=== PATIENT | male | born 1995 | race African-American/Black ===

== ENCOUNTER 2023-03-10 13:32 | Inpatient (IN) ==
[2023-03-10] MEDS ORDERED: SODIUM CHLORIDE 0.9% 1,000 ML IV ONE (13:54)
--- NOTE | 2023-03-10 14:17 | Emergency Department Note ---
Impression & Plan Fever, Travel within last 14 days ED Provider Note NAME: DINO HENLEY AGE: 27 SEX: M : 1995 ARRIVES VIA: Walk-In INFORMANT: Patient, ED PROVIDER(S): Mehul Chaparro DO CHIEF COMPLAINT: Fever HPI: The patient is a 27-year-old male who presented to the emergency department for fever. The patient was sent to the emergency department from [facility]. He recently returned from [place] over the weekend. He was there for a month. He has no symptoms. He denies having any cough or diarrhea. He denies having any chest pain or difficulty breathing. He denies having any dysuria or frequency. He was tested for the usual panel at [facility] but when this was negative he was sent to the emergency department for further evaluation ROS: See above HPI for pertinent positives & negatives. A total of 10 systems reviewed and were otherwise negative. PAST MEDICAL HISTORY: See Below PAST SURGICAL HISTORY: See Below FAMILY HISTORY: See Below SOCIAL HISTORY: See Below HOME MEDICATIONS: See Below ALLERGIES: See Below VITALS: See Below PHYSICAL EXAMINATION: GENERAL: Patient is awake alert in no acute distress patient is resting comfortably and showing no signs of anxiety EYES: The conjunctivae are clear. The pupils are round and reactive. EARS, NOSE, MOUTH AND THROAT: The nose is without any evidence of any deformity. NECK: The neck is nontender and supple. RESPIRATORY: Normal respiratory effort is noted there is no evidence of wheezing rhonchi or rales CARDIOVASCULAR: Regular rate and rhythm noted there no murmurs rubs or gallops normal S1 normal S2. GASTROINTESTINAL: The abdomen is soft. Abdomen is nontender. MUSCULOSKELETAL/EXTREMITIES: There is no evidence of gross deformity full range of motion is noted in the hips and shoulders. SKIN: There is no obvious evidence of any rash. There are no petechiae, pallor or cyanosis noted. NEUROLOGIC: Patient is awake alert and oriented x3 strength is symmetric patellar reflexes are 2+ bilaterally MEDICAL DECISION MAKING: The patient is a 27-year-old male who presented to the emergency department for fever. The patient was seen at [facility] and because of his recent travel history he was sent to the emergency department for further evaluation. I discussed patient's laboratory and radiographic studies with him. He was treated with IV fluids in the emergency department. The patient has high risk for malaria or other travel related illness. For this reason I discussed his condition with the on-call [facility] hospitalist. The patient may require serial malaria smears and I do not feel he would be able to arrange this as an outpatient. The patient was agreeable to plan. Triage Nursing notes reviewed. Prior medical records reviewed Vital Signs: reviewed and remarkable for fever. Differential diagnosis: Viral syndrome, otitis, pharyngitis, pneumonia, influenza, meningitis, urinary tract infection, sepsis, bacteremia, as well as other pathologies. ER treatment provided: See below Diagnostics interpreted by me: ECG: none Cardiac Monitoring: An order was placed for continuous cardiac monitoring. The monitor shows a rate of 64 bpm with sinus rhythm. Laboratory studies: As stated above and show below. Imaging studies: See below. Radiographic imaging was reviewed by myself Consultation(s): I discussed this case with Dr Ott who is on-call for the [facility] group. Past Med/Surg History Social History Smoking Status: Never smoker Feels Safe at Home: Yes Allergies Allergies Allergy/AdvReac Type Severity Reaction Status Date / Time No Known Allergies Allergy Verified 03/10/23 17:46 Home Meds Home Medications Medication Instructions Recorded Confirmed No Known Home Medications 03/10/23 03/10/23 Results & Data (ED) Vital Signs Vital Signs - 24 hr 03/10/23 13:39 03/10/23 15:09 03/10/23 15:09 Temperature 39.2 C H Temperature Source Oral Pulse Rate 97 H Pulse Rate [Apical] 86 Respiratory Rate 18 14 Blood Pressure 119/65 Blood Pressure [Right Arm] 116/67 Blood Pressure Mean 83 Blood Pressure Mean [Right Arm] 83 Pulse Oximetry 95 97 Oxygen Delivery Method Room Air Room Air Room Air Sepsis Recent Fever Within 48 Hours Yes Sepsis New/Unexplained Change in Mental Status No Sepsis Action Taken by Nursing No Action Required 03/10/23 16:02 03/10/23 17:00 Temperature Temperature Source Pulse Rate 86 Pulse Rate [Apical] 65 Respiratory Rate 18 Blood Pressure Blood Pressure [Right Arm] 110/71 Blood Pressure Mean Blood Pressure Mean [Right Arm] 84 Pulse Oximetry 98 Oxygen Delivery Method Sepsis Recent Fever Within 48 Hours Sepsis New/Unexplained Change in Mental Status Sepsis Action Taken by [facility] Medications Current Medication List: was personally reviewed by me Laboratory Data Attestation: I reviewed the patient's lab results. 03/10/23 14:58 03/10/23 14:58 Lab Results 03/10/23 03/10/23 Range/Units 14:58 15:30 WBC 3.15 L (4.8-10.8) K/ul RBC 4.60 L (4.70-6.10) M/uL Hgb 13.9 L (14.0-18.0) g/dl Hct 40.7 L (42.0-52.0) % MCV 88.5 (80.0-100.0) fL MCH 30.2 (25.0-34.0) pg MCHC 34.2 (32.0-36.0) g/dL RDW Std Deviation 38.7 (36.4-46.3) fL RDW Coeff of Tab 12.0 (11.5-14.5) % Plt Count 150 (130-400) K/uL MPV 10.4 (9.4-12.4) fL Immature Gran % (Auto) 0.3 % Neut % (Auto) 68.9 % Lymph % (Auto) 18.7 % [place] % (Auto) 10.8 % Eos % (Auto) 1.0 % Baso % (Auto) 0.3 % Neut # (Auto) 2.17 (1.40-6.50) K/uL Lymph # (Auto) 0.59 L (1.20-3.40) K/uL [place] # (Auto) 0.34 (0.11-0.59) K/uL Eos # (Auto) 0.03 (0.00-0.50) K/uL Baso # (Auto) 0.01 (0.00-0.20) K/uL Immature Gran # (Auto) 0.01 (0.01-0.20) K/uL PT 11.9 (9.0-12.0) Seconds INR 1.1 (0.9-1.1) APTT 33 H (21-31) Seconds PTT Ratio 1.2 VBG pH 7.43 H (7.36-7.41) VBG pCO2 41 (38-50) mmHg VBG pO2 64 mmHg VBG HCO3 27 mmol/L VBG O2 Saturation 93.1 % VBG Base Excess 2.6 mEq/L Sodium 134 L (136-145) mmol/L Potassium 3.2 L (3.5-5.1) mmol/L Chloride 100 (98-107) mmol/L Carbon Dioxide 28 (21-32) mmol/L Anion Gap 6 (3-11) BUN 7 (6-23) mg/dl Creatinine 1.16 (0.6-1.4) mg/dl Est Cr Clr Drug Dosing 89.4 ml/min Est GFR ( Amer) 98.1 ml/min Est GFR (Non-Af Amer) 84.6 ml/min BUN/Creatinine Ratio 6.0 L (10-20) Glucose 115 H (70-99(Fasting)) mg/dl Lactate 0.9 (0.4-2.0) mmol/L Calcium 8.8 (8.6-10.3) mg/dl Magnesium 1.7 (1.7-2.4) mg/dl Total Bilirubin 0.5 (0.2-1.0) mg/dl Direct Bilirubin 0.1 (0-0.2) mg/dl AST 40 H (13-39) U/L ALT 23 (7-52) U/L Alkaline Phosphatase 43 (34-104) U/L Troponin I High Sens 13.6 (0-20) pg/ml Total Protein 7.0 (6.0-8.3) gm/dl Albumin 4.1 (3.4-5.0) gm/dl Procalcitonin 1.07 H (0-0.5) ng/ml Urine Color Yellow Urine Appearance Clear (Clear) Urine pH 7.0 (4.5-7.5) Ur Specific [place] 1.002 (1.000-1.030) Urine Protein Negative (Negative) Urine Glucose (UA) Negative (Negative) Urine Ketones Negative (Negative) Urine Blood Negative (Negative) Urine Nitrite Negative (Negative) Urine Bilirubin Negative (Negative) Urine Urobilinogen Negative (Negative) Ur Leukocyte Esterase Negative (Negative) Adenovirus (PCR) Not Detected (NotDetected) B. pertussis DNA (PCR) Not Detected (NotDetected) B.parapertussis DNA PCR Not Detected (NotDetected) C. pneumoniae DNA (PCR) Not Detected (NotDetected) Coronavirus OC43 (PCR) Not Detected (NotDetected) Coronavirus HKU1 (PCR) Not Detected (NotDetected) Coronavirus 229E (PCR) Not Detected (NotDetected) SARS-CoV-2 (PCR) Not Detected (NotDetected) Coronavirus NL63 (PCR) Not Detected (NotDetected) Human Metapneumovir PCR Not Detected (NotDetected) Influenza Type A (PCR) Not Detected (NotDetected) Influenza Type B (PCR) Not Detected (NotDetected) M. pneumoniae (PCR) Not Detected (NotDetected) Parainfluenza 1 (PCR) Not Detected (NotDetected) Parainfluenza 2 (PCR) Not Detected (NotDetected) Parainfluenza 3 (PCR) Not Detected (NotDetected) Parainfluenza 4 (PCR) Not Detected (NotDetected) RSV (PCR) Not Detected (NotDetected) Entero/Rhino (PCR) Not Detected (NotDetected) Administered Medications Acetaminophen (Acetaminophen 325 Mg Tab) 650 mg PO Q6H PRN PRN Reason: pain/fever Stop: 04/09/23 18:21 Last Admin: 03/10/23 18:29 Dose: 650 mg Documented By: TERRY Acyclovir (Acyclovir 400 Mg Tab) 400 mg PO TID SCOTTY Stop: 03/17/23 20:59 Last Admin: 03/10/23 21:03 Dose: 400 mg Documented By: SASHA Lactated Ringer's (Lr) 1,000 mls @ 100 mls/hr IV .Q10H SCOTTY Stop: 03/11/23 15:29 Last Admin: 03/10/23 20:52 Dose: 100 mls/hr Documented By: SASHA Discontinued Medications Acetaminophen (Acetaminophen 325 Mg Tab) Confirm Administered Dose 650 mg .ROUTE .STK-MED ONE Stop: 03/10/23 18:28 Last Admin: 03/10/23 18:30 Dose: Not Given Documented By: TERRY Sodium Chloride (Nss) 1,000 mls @ 999 mls/hr IV .Q1H1M ONE Stop: 03/10/23 14:54 Last Infusion: 03/10/23 17:02 Dose: Infused Documented By: Admin: 03/10/23 15:05 Dose: 999 mls/hr Documented By: BITA Potassium Chloride (Potassium Chloride Crtab 20 Meq Tabcr) 40 meq PO NOW STA Stop: 03/10/23 18:13 Last Admin: 03/10/23 18:29 Dose: 40 meq Documented By: TERRY Imaging Data Attestation: I personally reviewed and interpreted this imaging study as follows: My Impression: 1 view chest x-ray was obtained in the emergency department. My interpretation is no free air or definite infiltrate, final report below. Radiologist's Impression: Chest X-Ray 03/10/23 13:54 XR chest 1V portable CLINICAL HISTORY: Sepsis. COMPARISON STUDY: No previous studies for comparison. FINDINGS: Lung volumes are normal. Lungs are clear. There is no pneumothorax or pleural effusion. Cardiac size is normal. Mediastinal contours are normal. There is no evidence for pulmonary edema. IMPRESSION: No acute cardiopulmonary findings. ACT 112: Negative or not required by law. Electronically signed by: Tony Toney M.D. 03/10/2023 2:30 PM Discharge Plan Visit Data Chief Complaint: Referred by Doctor Stated Complaint: FEVER, TRAVEL FROM [place], REF BY DOC ED Provider: Mehul Chaparro Discharge Problem: Fever, Travel within last 14 days Patient Disposition: Admitted As Inpatient Discharge Instructions Interventions: ED Discharge Assessment Last Done: 03/10/23 20:26 Discharge Problem: Fever Qualifiers: Fever type: unspecified Qualified Code(s): R50.9 - Fever, unspecified
--- NOTE | 2023-03-10 14:31 | XRay Report ---
XR chest 1V portable CLINICAL HISTORY: Sepsis. COMPARISON STUDY: No previous studies for comparison. FINDINGS: Lung volumes are normal. Lungs are clear. There is no pneumothorax or pleural effusion. Car diac size is normal. Mediastinal contours are normal. There is no evidence for pulmonary edema. IMPRESSION: No acute cardiopulmonary findings. ACT 112: Negative or not required by law. Electronically signed by: Tony Toney M.D. 03/10/2023 2:30 PM
[2023-03-10 15:17] LABS: Appearance Urine Clear (Clear); Bilirubin Urine Negative (Negative); Blood Urine Negative (Negative); Color Urine Yellow; Glucose Urine UA Negative (Negative); Ketones Urine Negative (Negative); Leukocyte Esterase Urine Negative (Negative); Nitrite Urine Negative (Negative); Protein Urine Negative (Negative); Specific Gravity Urine 1.002 (1.000-1.030); Urobilinogen Urine Negative (Negative)
[2023-03-10 15:21] LABS: Hematocrit (blood only) 40.7 % (42.0-52.0); Hemoglobin 13.9 g/dl (14.0-18.0); Mean Corpuscular Hemoglobin 30.2 pg (25.0-34.0); Mean Corpuscular Hgb Conc 34.2 g/dL (32.0-36.0); Mean Corpuscular Volume 88.5 fL (80.0-100.0); Mean Platelet Volume 10.4 fL (9.4-12.4); Platelet Count 150 K/uL (130-400); RDW Standard Deviation 38.7 fL (36.4-46.3); White Blood Count 3.15 K/ul (4.8-10.8)
[2023-03-10 15:36] LABS: INR 1.1 (0.9-1.1); Partial Thromboplastin Ratio 1.2; Partial Thromboplastin Time 33 Seconds (21-31); Prothrombin Time 11.9 Seconds (9.0-12.0)
[2023-03-10 15:41] LABS: Base Excess VBG 2.6 mEq/L; HCO3 VBG 27 mmol/L; Oxygen Saturation VBG 93.1 %; PCO2 VBG 41 mmHg (38-50); PO2 VBG 64 mmHg; pH VBG 7.43 (7.36-7.41)
[2023-03-10 15:46] LABS: Basophils # (auto) 0.01 K/uL (0.00-0.20); Basophils % (auto) 0.3 %; Eosinophils # (auto) 0.03 K/uL (0.00-0.50); Immature Granulocytes # (auto) 0.01 K/uL (0.01-0.20); Immature Granulocytes % (auto) 0.3 %; Lymphocytes # (auto) 0.59 K/uL (1.20-3.40); Lymphocytes % (auto) 18.7 %; Monocytes # (auto) 0.34 K/uL (0.11-0.59); Monocytes % (auto) 10.8 %; Neutrophils # (auto) 2.17 K/uL (1.40-6.50); Neutrophils % (auto) 68.9 %
[2023-03-10 15:49] LABS: Albumin Level 4.1 gm/dl (3.4-5.0); Bilirubin Direct 0.1 mg/dl (0-0.2); Bilirubin,Total 0.5 mg/dl (0.2-1.0); Calcium 8.8 mg/dl (8.6-10.3); Magnesium 1.7 mg/dl (1.7-2.4); Potassium 3.2 mmol/L (3.5-5.1)
[2023-03-10 15:55] LABS: Creatinine Clr Calc Pharmacy 89.4 ml/min; Est GFR (African American) 98.1 ml/min; Est GFR (Non-African American) 84.6 ml/min
[2023-03-10 15:59] LABS: Troponin I High Sensitivity 13.6 pg/ml (0-20)
[2023-03-10 16:00] LABS: Adenovirus PCR Not Detected (NotDetected); Bordetella parapertussis PCR Not Detected (NotDetected); Bordetella pertussis PCR Not Detected (NotDetected); Chlamydia pneumoniae PCR Not Detected (NotDetected); Coronavirus 229E PCR Not Detected (NotDetected); Coronavirus CoV-2 (COVID19)PCR Not Detected (NotDetected); Coronavirus HKU1 PCR Not Detected (NotDetected); Coronavirus NL63 PCR Not Detected (NotDetected); Coronavirus OC43PCR Not Detected (NotDetected); Human Metapneumovirus PCR Not Detected (NotDetected); Influenza A PCR Not Detected (NotDetected); Influenza B PCR Not Detected (NotDetected); Mycoplasma pneumoniae PCR Not Detected (NotDetected); Parainfluenza Virus 1 PCR Not Detected (NotDetected); Parainfluenza Virus 2 PCR Not Detected (NotDetected); Parainfluenza Virus 3 PCR Not Detected (NotDetected); Parainfluenza Virus 4 PCR Not Detected (NotDetected); Respiratory Syncytial VirusPCR Not Detected (NotDetected); Rhinovirus/Enterovirus PCR Not Detected (NotDetected)
--- NOTE | 2023-03-10 17:46 | History & Physical Report ---
Date of Service March 10, 2023 Assessment & Plan (1) Fever: Plan: Fever of unknown source, associated leukopenia and anemia History of recent travel to [facility]. - Resp Biofire negative Patient with recent travel to malaria endemic region, initial blood smear is negative. Every 8 hour smear samples pending, if patient has a sudden atypical fever spike/rigors add on additional peripheral smear draw at that time Neutropenic, anemic at 13.9 and normocytic. No prior available for comparison - Does have headache which coincides with intermittent fever and which resolves in between. No persistent headache, neuro symptoms, or vision change. +mild sung tosensitivity this Am and retro-orbital which resolved, no persistent photo/phonosensitivity. no arthralgias, denies myalgias. No abd pain/diarrhea. - Endorses multiple mosquito bites while abroad. Was not on any type of prophylaxis. has not had any travel vaccinations. No history of HIV. Denies history of infectious disease and any history of medical problems. - Headache, 1 episode of retroorbital pain, and leukopenia are present. No hemoconcentration, mild elevation of apTT normal INR. Dengue PCR sent. L eye trace sleral injection ?developing conjunctivitis if worsening --> consider Zika PCR - ID consulted - No polyarthralgia, chikungunya send out deferred. - Continue contact precautions until source identified. DDx includes malaria and mosquito borne viral illness. - Tylenol q4h PRN. Do not use ibuprofen/NSAIDs until dengue r/o. BC pending. Peripheral smear q8h pending. - No history of sickle cell disease or thalassemia Potassium 3.2, repleted Procalcitonin elevated 1.07 UA is negative, bio fire is negative, chest x-ray is negative (2) Travel within last 14 days: Plan DVT prophylaxis: SCDs/ambulate Diet: Regular Disposition: Medical/surgical CODE STATUS: Full code History of Present Illness Primary Care Provider: [facility] reports [place]. Was fine when he arrived the first two days. Thursday developed fevers, chills. Did not check his temperature at home. Fevers seem to come and go and are mostly in the evening when sleeping. Had one episode of shaking chills Thursday at 3am, no shaking/rigors since. Denies myalgias and arthralgias. Was a little sore from playing soccer over the weekend, but nothing unusual or worse than he would normally get. Intermittent evening headache that precedes his fever, and then resolves after fever improves or by the time he awakens. No vision change. Endorses mild sensitivity to light this morning which has resolved. Headache causes some mild photo/phonesensitvity. No nuchal rigidity. No rashes. Cold sores started to develop yesterday morning, ulcer on lower lips and nose this morning. No cough. No shortness of breath. No leg swelling. No calf pain. No chest pain. No lightheadedness or dizziness. Feels a little weak and tired when waking up in the morning, but this improves throughout the day No other medical problems No family history of sickle cell disease or thalassemia No tobacco product use. +EtoH use socially. 1 beer in the past month. 3 drinks per week at most. No reacreational drug use. No marijuana use No medication allergies DOes not take any medications normally. Tried tylenol 600mg x1 thi smorning, 1x ibuprofen three times over the weekend. 1x dose of theraflu yesterday No history of anemia, has had bloodwork before Was not on any prophylaxis Malaria endemic. No history of dengue. Had some mosquito bites while he was there. No rashes Ollie, Main. 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 Allergies Allergy/AdvReac Type Severity Reaction Status Date / Time No Known Allergies Allergy Verified 03/10/23 17:46 Home Medications Medication Instructions Recorded Confirmed Type No Known Home Medications 03/10/23 03/10/23 History Past Med/Surg History Social History Smoking Status: Never smoker Feels Safe at Home: Yes Physical Exam Physical Exam: General: A&Ox3. NAD. Cooperative. Appears fatigued but nontoxic. Skin warm and dry HEENT: Atraumatic, normocephalic. Vision/hearing intact. No photo/phonosensitivity. Eom intact without pain. No nuchal rigidity. L sclera with trace injection without pain/itching/purulence. R sclera without injection/conjunctival signs. Pulm: CTAB A&P. -wheezes, -rales, -rhonchi. Symmetrical chest rise. No increased work of breathing. No respiratory distress. Cardiac: RRR, -mrg. Radial pulses intact and symmetrical. Abdominal: Nontender, nondistended, soft. BS present. Ext: warm, dry. 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 Sensation to soft touch intact in hands and feet. Results & Data Results & Data Vital Signs (Past 12 Hours) Vital Signs Temp Pulse Pulse Resp BP BP Pulse Ox 03/10/23 16:02 86 03/10/23 15:09 86 14 116/67 97 03/10/23 15:09 03/10/23 13:39 39.2 C H 97 H 18 119/65 95 O2 Del Method 03/10/23 16:02 03/10/23 15:09 Room Air 03/10/23 15:09 Room Air 03/10/23 13:39 Room Air PG Care Time/CCT Total # of Minutes Spent Total Time Spent with Patient: Total time spent is greater than 50% in coordination of care (as documented) at patient's floor/unit and/or counseling patient: Coding Level of Care Code 76519 INT INP/OBS CARE 2/55MIN Diagnoses Fever R50.9 Travel within last 14 days Z78.9
[2023-03-10] MEDS ORDERED: POTASSIUM CHLORIDE CRTAB 20 MEQ TABCR PO STA (18:12)
[2023-03-10] MEDS ORDERED: ACETAMINOPHEN 325 MG TAB ONE (18:27)
[2023-03-10] MEDS: ACETAMINOPHEN 325 MG TAB PO PRN (18:29)
[2023-03-10] MEDS: LACTATED RINGER'S 1,000 ML IV SCH (20:52)
[2023-03-10] MEDS: ACYCLOVIR 400 MG TAB PO SCH (21:03)
[2023-03-11] MEDS: ACETAMINOPHEN 325 MG TAB PO PRN (00:40)
[2023-03-11] MEDS: LACTATED RINGER'S 1,000 ML IV SCH (05:21)
[2023-03-11 06:49] LABS: Albumin Globulin Ratio 1.4 (0.9-2); Albumin Level 3.8 gm/dl (3.4-5.0); BUN Creatinine Ratio 6.7 (10-20); Bilirubin,Total 0.5 mg/dl (0.2-1.0); Calcium 8.2 mg/dl (8.6-10.3); Creatinine Clr Calc Pharmacy 79.7 ml/min; Est GFR (African American) 95.1 ml/min; Est GFR (Non-African American) 82.1 ml/min; Globulin 2.7 gm/dl (2.5-4.0); Total Protein 6.5 gm/dl (6.0-8.3)
[2023-03-11 07:00] LABS: Hematocrit (blood only) 40.4 % (42.0-52.0); Hemoglobin 13.7 g/dl (14.0-18.0); Mean Corpuscular Hgb Conc 33.9 g/dL (32.0-36.0); Mean Corpuscular Volume 88.6 fL (80.0-100.0); Mean Platelet Volume 10.5 fL (9.4-12.4); Platelet Count 85 K/uL (130-400); RDW Coefficient of Variation 11.9 % (11.5-14.5); RDW Standard Deviation 38.9 fL (36.4-46.3); Red Blood Count 4.56 M/uL (4.70-6.10); White Blood Count 3.25 K/ul (4.8-10.8)
[2023-03-11 07:28] LABS: ALC (manual) 1.24 K/uL (1.2-3.4); ANC (manual) 1.53 K/uL (1.4-6.5); Eosinophils # (manual) 0.13 K/uL (0-0.50); Eosinophils % (manual) 4 %; Lymphocytes # (manual) 0.75 K/uL (1.2-3.4); Lymphocytes % (manual) 23 %; Metamyelocytes # (manual) 0.07 K/uL (0-0); Monocytes # (manual) 0.36 K/uL (0.11-0.59); Monocytes % (manual) 11 %; Neutrophils # (manual) 1.53 K/uL (1.40-6.50); Neutrophils % (manual) 47 %; Reactive Lymphocytes # (manual) 0.49 K/uL; Reactive Lymphocytes % (manual) 15 %
[2023-03-11] MEDS: ACYCLOVIR 400 MG TAB PO SCH ×3 (08:43→20:32)
[2023-03-11 10:55] LABS: Lyme Ab IgG w/WB Rflx Negative (Negative); Lyme Ab IgM w/WB Rflx Negative (Negative)
--- NOTE | 2023-03-11 11:18 | Electrocardiogram Report ---
Test Reason : Blood Pressure : / mmHG Vent. Rate : 093 BPM Atrial Rate : 093 BPM P-R Int : 140 ms QRS Dur : 080 ms QT Int : 326 ms P-R-T Axes : 046 025 013 degrees QTc Int : 405 ms Normal sinus rhythm No previous ECGs available Confirmed by Ruiz Fenton ([id number]) on 03/11/2023 11:18:00 AM Referred By: [facility] Confirmed By:Marky Fenton
[2023-03-11] MEDS: DOXYCYCLINE HYCLATE 100 MG CAP PO SCH ×2 (14:11→20:32)
--- NOTE | 2023-03-11 14:46 | Infectious Disease Consult ---
Date of Consultation March 11, 2023 Assessment & Plan (1) Travel within last 14 days: (2) Fever: (3) Leukopenia: (4) Thrombocytopenia: (5) Elevated AST (SGOT): (6) Anemia: (7) Recurrent cold sores: Plan Facundo Kahn is a 27-year-old man originally from [place] (moved to ~10 years ago) with no prior PMH, and with recent travel to [facility] (02/01/23 03/03/23) who was sent from [facility] to the ED on 03/10/23 for fevers, chills, and headaches that began on 03/06. Fever in a returning traveler from [facility]. Labs reveal leukopenia, mild anemia, and thrombocytopenia. Normal renal function. Slightly elevated AST otherwise normal LFTs. His fevers appear to have abated for the time being, however his thrombocytopenia is worsening (plts 85 on 03/11). He was febrile throughout most of 03/10 and 03/11 but reports his headaches have resolved. He reports that while in [place], he had multiple mosquito bites, noticed rats at his place of residence, and dipped his feet into water at the beach (he says this was the ocean and he denies any freshwater exposures). He drank bottled water and did not eat any raw/undercooked meat. No new sexual partners on his travels. (last sexually active several months prior). Did not take malaria ppx, did not take travel vaccinations. Ddx is wide for fever in a returning traveler from [place], which include: malaria (blood smears prelim neg x3), dengue, chikungunya (pt without arthralgias/myalgias), tick bite fever (R. africae, spotted fever / other rickettsial infections; pt without eschar or rash), acute Schistosomiasis (pt without obvious freshwater exposures, no eosinophilia), Typhoid (BCx NGTD), meningococcus (would expect pt to be more ill), trypanosomiasis (headaches have resolved; pt without chancre, no lymphadenitis), leptospirosis (pt with possible rodent exposure), hantavirus (pt with possible rodent exposure). Also considered measles, varicella, parvovirus. Without any arthralgias/myalgias or rash to help pinpoint a specific etiology. Patient with ?scleral icterus (but normal bili)perhaps start of conjunctivitis which could be from viral hemorrhagic fevers or leptospirosis (though without pronounced conjunctival suffusion). A self-limited process such as viral infection is possible. Given the possibility of Tick Bite Fever/Spotted fever/rickettsial infection, will start doxycycline, likely for a 10-day course. This would also cover leptospirosis. Could consider sending testing for Yellow fever, Chikungunya, Zika. Would also send hepatitis testing if LFTs worsen. Malaria blood smears prelim neg x3. If patient has recurrence of high fever spike/rigors, would obtain additional peripheral malaria smear at that time. Currently awaiting testing for HIV, dengue, leptospirosis, hantavirus, and Lyme/RMSF/Rickettsial panel (which may be less sensitive but have cross- reactivity with ATBF). If clinical worsening, recurrence of fevers, or hemodynamic instability, would consider starting ceftriaxone (which would cover typhoid) and consider CT C/A/P for further evaluation. He also reported cold sores of his lips/nose that appear to be healing, which are in the same location as his typical outbreaks when stressed/sick. 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 Reasonable to continue acyclovir. https://wwwnc.cdc.gov/travel/destinations/traveler/none/roland https://wwwnc.cdc.gov/travel/yellowbook/2023/posttravel-evaluation/fever-i l-mer-nwgypiyb-traveler ID Problem List: 1.Fever in a returning traveler from [place] 2.Pancytopenia with mild leukopenia/anemia, moderate thrombocytopenia 3.Mildly elevated AST 4.Cold sores, HSV infection Recommendations: - If patient has recurrence of high fever spike/rigors, would obtain additional peripheral malaria smear at that time, and repeat blood cultures - If clinical worsening, recurrence of fevers, or hemodynamic instability, would consider starting ceftriaxone (which would cover typhoid) and consider CT C/A/P for further evaluation. - Start doxycycline 100 mg PO BID - Reasonable to continue PO acyclovir given recent cold sores - Send HIV, Rickettsial agents (RMSF panel and R. typhus panel), Lyme (to eval for cross-reactivity), Histo urine Ag - Will attempt to send the following send-out testing: dengue virus PCR, dengue NS1 Ag, leptospirosis PCR, leptospirosis IgM, hantavirus Ab - Could consider sending testing for Yellow fever, Chikungunya, Zika. - F/u final malaria smears - F/u dengue fever Ab - f/u BCx ID will continue to follow. Cathy Krueger MD, S Infectious Diseases [facility] ID Connect direct line: [phone] Consultation Information Consultation was provided via telemedicine using two-way real-time interactive telecommunication between the patient and the telemedicine provider. For the duration of the visit, the provider was performing the assessment from a different facility than the patient. This includesuse of bluetooth stethoscope forauscultationperformed by the telepresenter that the telemedicine provider can hear if described in the physical exam. [employer] contact information: Please call [facility] Connect Call Center . (Phone Number For Physician Use Only) After establishing a telemedicine visit, patient was: Patient was verified with two unique identifiers, Patient/authorized rep acknowledged consent and understanding and Gave permission to continue telehealth session Time Spent with Patient: Initial => 75 min History of Present Illness Reason for Consultation: fever in a returning traveler from [place] Attending Physician: Rudy Pereyra MD History of Present Illness Facundo Kahn is a 27-year-old man originally from [place] (moved to ~10 years ago) with no prior PMH, and with recent travel to [facility] (02/01/23 03/03/23) who was sent from [facility] to the ED on 03/10/23 for fevers, chills, and headaches that began on 03/06. ID is consulted for fever in a returning traveler from [place]. Facundo reports he left [place] on 03/03/23. He initially returned to [place] and drove himself from [place] to [facility] on 03/04, then to [place] on 03/05. On Thursday03/06/23 he developed subjective fevers and chills. The fevers appeared to come in the evening when sleeping. He had one episode of shaking chills on Thursday at 3 am. He also developed intermittent nighttime headaches that precede his fevers, associated with mild light sensitivity. No chest pain, shortness of breath, cough, diarrhea. No rashes. No myalgias and arthralgias. Overall felt well over the weekend and played soccer over the weekend. Did note he was a little sore from playing soccer over the weekend, but felt this was normal for him. He was able to attend school on Thursday 03/09. No focal weakness. On 03/09 he also noticed ulcers which he thought were cold sores on his lower lips and nose, which have already begun to heal. He reports that he often gets sold sores in these regions of his face when he was sick; he thinks the nose lesion was slightly bigger than usual but otherwise that the lesions have behaved just like other cold sore outbreaks he has had. He has only taken ibuprofen and Theraflu; has not taken any antibiotics. He saw [facility] who performed a respiratory panel (reportedly negative for flu/Covid, unclear what else was sent), and sent him to [facility] ED for further evaluation. In the ED, BP 119/65 HR 80s-90s, febrile (TMax 39.2 on 03/10), SpO2 95-98% on RA. UA neg. Procal 1.07. Respiratory Biofire neg. AST of 40 -> 59, ALT 32 - >29, alk phos 43 tbili 0.5. WBC 3.15 - > 3.25 (ANC 1530), Hgb 13.9 0-> 13.7, plt 150 -> 85. He was in [facility] 02/04/23 03/04/23. He did not take any malaria prophylaxis during his trip. He did not take any travel vaccines prior to his trip. He recalls having some mosquito bites on his trip, especially in the first few days. After the first few days, he used netting in his room. He did notice that he had rodents in the house where he was sleeping but was not aware of direct contact (no bites; did not recall seeing droppings). No other pet or animal exposures including dogs, bats, livestock. Did not notice any other insect bites or ticks, no large bite wounds, besides the mosquito bites. Did not go in wooded areas. Only drank bottled water. Did not eat raw or undercooked meat. No sick contacts. No sexual contacts recently (last was several months ago); was not sexually active on recent trip. He went to the beach (he says this was the coast/ocean, no freshwater) and put his feet in the water briefly. He denies freshwater swimming/freshwater exposure. He was born in and grew up in [place], and moved to the ~10 years prior (first to [place], now lives in [place]). He thinks he may have had malaria when he was a child. Does not recall TB exposure. He does not recall a history of dengue infection. No family history of sickle cell disease or thalassemia. No tobacco product use. +EtoH use socially. 1 beer in the past month. 3 drinks per week at most. No other recreational drug use. At the time of evaluation, the patient reports his headaches have resolved. He has no pain or localizing symptoms but still feels tired and not at baseline. Allergies Allergy/AdvReac Type Severity Reaction Status Date / Time No Known Allergies Allergy Verified 03/10/23 17:46 Home Medications Medication Instructions Recorded Confirmed Type No Known Home Medications 03/10/23 03/10/23 History Patient History Social History Smoking Status: Never smoker Hx Alcohol Use: Yes Alcohol type: hard liquor Hx Substance Use: No Preferred Language: Albanian Communication Ability: Effective Survey Technician Required: No Beliefs That Will Affect Care: None Current Living Situation: Other Current Living Situation Comment: lives in an apartment with 2 other people and a small dog Other Information That Helps Us Care for You: No Feels Safe at Home: Yes Safety Concerns: Feels Safe At This Time Assistive Devices: None Physical Exam Physical Exam: Exam obtained with aid of in-person telepresenter. General: Well-appearing, no acute distress HEENT: Conjunctivae non-injected, ?bilateral mild scleral icterus, MMM, OP clear. Healed lesions on his lips/nose. Neck: No cervical/submandibular LAD appreciated CV: Unable to tele-auscultate due to technical difficulties; per telepresenter: RRR, normal S1/S2; no murmurs, rubs, or gallops. Resp: Unable to tele-auscultate due to technical difficulties; per telepresenter: CTAB; no wheezes, rales, or rhonchi. Respirations nonlabored. Abd: Soft, nontender, nondistended. Back: No tenderness to palpation along spine Ext: Warm and well-perfused, no edema. No joint warmth or effusions noted. Skin: No rashes or lesions. No bug bites or wounds noted. Neuro: Alert & interactive. Grossly non-focal. Psych: Pleasant, appropriate. Results & Data Vital Signs (Past 12 Hours) Vital Signs Temp Pulse Resp BP Pulse Ox O2 Del Method 03/11/23 14:38 37.9 C H 71 18 107/70 98 Room Air 03/11/23 12:00 37.0 C 03/11/23 07:55 38.1 C H 74 18 119/76 98 Room Air 03/11/23 05:04 38.3 C H 73 18 112/72 97 Room Air Diagnostic Findings Diagnostics: 03/10/23 CXR FINDINGS: Lung volumes are normal. Lungs are clear. There is no pneumothorax or pleural effusion. Cardiac size is normal. Mediastinal contours are normal. There is no evidence for pulmonary edema. IMPRESSION: No acute cardiopulmonary findings. Micro Summary: 03/11 Blood smear #3: prelim neg 03/10 Blood smear #2: neg 03/10 Blood smear #1: neg 03/10 BCx x2: NGTD 03/11 Dengue fever Ab: pending 03/10 Respiratory Biofire PCR panel: neg 03/10 UA: neg Antibiotic Summary: doxycycline (03/11 present) acyclovir (03/10 03/11) (2) Fever Fever type: unspecified Qualified Code(s): R50.9 - Fever, unspecified
--- NOTE | 2023-03-11 14:50 | Hospitalist Progress Note ---
Date of Service March 11, 2023 Assessment & Plan (1) Fever: Plan: Probably viral. Blood cultures negative to date. Infectious disease consultation and recommendations appreciated. Multiple peripheral smears are negative. Multiple lab tests are pending. (2) Travel within last 14 days: Plan: He recently was in [place] Plan Hopeful discharge to home tomorrow, March 12 Admission and Anticipated Discharge Date Admission Date: March 10, 2023 Subjective Alert and oriented. Low-grade fever persists. Blood cultures are negative to date. Peripheral smear also negative for parasitic diseases. Mild hypokalemia has been corrected. Infectious disease consultation and recommendations appreciated. Multiple tests remain pending Review of Systems 2 Review of Systems: Constitutional-intermittent fever ENT-no blurred vision, no double vision, no epistaxis, no sore throat Respiratory-no cough, no wheezing, no shortness of breath Cardiac-no palpitations, no chest pain, no syncope GI-no nausea, vomiting, diarrhea, melena, hematochezia -no urinary retention, no urinary incontinence, no dysuria, no hematuria Musculoskeletal-no joint pain, no muscle tenderness Skin-no bruising, no rashes, no pruritus Neuro-no isolated weakness, no paresthesia, no weakness Psych-no depression, no anxiety Physical Exam 2 Physical Exam: General-alert and oriented x3. Intermittent low-grade fever HEENT-head atraumatic and normocephalic, pupils equal and reactive to light, extraocular muscles intact Neck-no lymphadenopathy or thyromegaly, trachea midline Chest-clear to auscultation. No rales, wheezing or rhonchi Cardiac-regular rate and rhythm, normal S1 and S2 Abdomen-normal bowel sounds, nontender, no hepatosplenomegaly Extremities-no cyanosis, clubbing, or edema Neuro-cranial nerves II through XII intact, motor and sensory function within normal limits, strength symmetrical, no focal deficits Psych-normal affect, normal mood Results & Data Results & Data Vital Signs (Past 12 Hours) Vital Signs Temp Pulse Resp BP Pulse Ox O2 Del Method 03/11/23 14:38 37.9 C H 71 18 107/70 98 Room Air 03/11/23 12:00 37.0 C 03/11/23 07:55 38.1 C H 74 18 119/76 98 Room Air 03/11/23 05:04 38.3 C H 73 18 112/72 97 Room Air Laboratory Results 03/11/23 06:09 03/11/23 06:09 PG Care Time/CCT Total # of Minutes Spent Total Time Spent with Patient: Total time spent is greater than 50% in coordination of care (as documented) at patient's floor/unit and/or counseling patient: Coding Level of Care Code 92752 SUB INP/OBS CARE 3/50MIN Diagnoses Fever R50.9 Fever type: unspecified Travel within last 14 days Z78.9 (1) Fever Fever type: unspecified Qualified Code(s): R50.9 - Fever, unspecified
[2023-03-12] MEDS: ACYCLOVIR 400 MG TAB PO SCH ×3 (08:23→20:22)
[2023-03-12] MEDS: DOXYCYCLINE HYCLATE 100 MG CAP PO SCH ×2 (08:23→20:22)
[2023-03-12 08:46] LABS: BUN Creatinine Ratio 7.3 (10-20); Calcium 9.1 mg/dl (8.6-10.3); Creatinine Clr Calc Pharmacy 86.2 ml/min; Est GFR (African American) 104.6 ml/min; Est GFR (Non-African American) 90.2 ml/min; Potassium 4.3 mmol/L (3.5-5.1)
[2023-03-12 08:52] LABS: Hematocrit (blood only) 45.5 % (42.0-52.0); Hemoglobin 15.3 g/dl (14.0-18.0); Mean Corpuscular Hemoglobin 29.9 pg (25.0-34.0); Mean Corpuscular Hgb Conc 33.6 g/dL (32.0-36.0); RDW Coefficient of Variation 12.2 % (11.5-14.5); RDW Standard Deviation 40.4 fL (36.4-46.3); Red Blood Count 5.11 M/uL (4.70-6.10); White Blood Count 5.69 K/ul (4.8-10.8)
[2023-03-12 09:23] LABS: Mean Platelet Volume 10.7 fL (9.4-12.4); Platelet Count 41 K/uL (130-400)
[2023-03-12 09:40] LABS: ALC (manual) 3.07 K/uL (1.2-3.4); ANC (manual) 1.31 K/uL (1.4-6.5); Echinocytes 2+; Eosinophils # (manual) 0.46 K/uL (0-0.50); Eosinophils % (manual) 8 %; Lymphocytes # (manual) 1.82 K/uL (1.2-3.4); Lymphocytes % (manual) 32 %; Monocytes # (manual) 0.85 K/uL (0.11-0.59); Monocytes % (manual) 15 %; Neutrophils # (manual) 1.31 K/uL (1.40-6.50); Neutrophils % (manual) 23 %; Plasma Cells # (manual) 0.51 K/uL (0-0); Plasma Cells % (manual) 9 %; Reactive Lymphocytes # (manual) 0.74 K/uL; Reactive Lymphocytes % (manual) 13 %
--- NOTE | 2023-03-12 14:29 | Hospitalist Progress Note ---
Date of Service March 12, 2023 Assessment & Plan (1) Fever: Plan: Probably viral. No fever documented since yesterday afternoon. Blood cultures negative to date. Infectious disease consultation and recommendations appreciated. Multiple peripheral smears are negative. Multiple lab tests are pending. (2) Travel within last 14 days: Plan: He recently was in [place] (3) Thrombocytopenia: Plan: Platelet count has dropped to 41,000. Serial labs ordered. EBV titers requested Plan Hopeful discharge to home soon if platelet count stabilizes Admission and Anticipated Discharge Date Admission Date: March 10, 2023 Subjective Alert and oriented. No distress. Unfortunately, his platelet count has dropped to 41,000 and could possibly drop further. He will not be discharged today. Infectious disease consultation and recommendations noted. EBV titers ordered. He has been admitted from observation. He has had no fever since yesterday afternoon. Review of Systems 2 Review of Systems: Constitutional-intermittent fever ENT-no blurred vision, no double vision, no epistaxis, no sore throat Respiratory-no cough, no wheezing, no shortness of breath Cardiac-no palpitations, no chest pain, no syncope GI-no nausea, vomiting, diarrhea, melena, hematochezia -no urinary retention, no urinary incontinence, no dysuria, no hematuria Musculoskeletal-no joint pain, no muscle tenderness Skin-no bruising, no rashes, no pruritus Neuro-no isolated weakness, no paresthesia, no weakness Psych-no depression, no anxiety Physical Exam 2 Physical Exam: General-alert and oriented x3. Intermittent low-grade fever HEENT-head atraumatic and normocephalic, pupils equal and reactive to light, extraocular muscles intact Neck-no lymphadenopathy or thyromegaly, trachea midline Chest-clear to auscultation. No rales, wheezing or rhonchi Cardiac-regular rate and rhythm, normal S1 and S2 Abdomen-normal bowel sounds, nontender, no hepatosplenomegaly Extremities-no cyanosis, clubbing, or edema Neuro-cranial nerves II through XII intact, motor and sensory function within normal limits, strength symmetrical, no focal deficits Psych-normal affect, normal mood Results & Data Results & Data Vital Signs (Past 12 Hours) Vital Signs Temp Pulse Resp BP Pulse Ox O2 Del Method 03/12/23 08:17 37.0 C 75 18 113/79 99 Room Air Laboratory Results 03/12/23 07:22 03/12/23 07:22 PG Care Time/CCT Total # of Minutes Spent Total Time Spent with Patient: Total time spent is greater than 50% in coordination of care (as documented) at patient's floor/unit and/or counseling patient: Coding Level of Care Code 23870 SUB INP/OBS CARE 3/50MIN Diagnoses Fever R50.9 Fever type: unspecified Travel within last 14 days Z78.9 Thrombocytopenia D69.6 (1) Fever Fever type: unspecified Qualified Code(s): R50.9 - Fever, unspecified
--- NOTE | 2023-03-12 15:42 | Infectious Disease Progress Nt ---
Date of Service March 12, 2023 Assessment & Plan (1) Travel within last 14 days: (2) Fever: (3) Leukopenia: (4) Thrombocytopenia: (5) Elevated AST (SGOT): (6) Anemia: (7) Recurrent cold sores: Plan Facundo Kahn is a 27-year-old man originally from [place] (moved to ~10 years ago) with no prior PMH, and with recent travel to [facility] (02/01/23 03/03/23) who was sent from [facility] to the ED on 03/10/23 for fevers, chills, and headaches that began on 03/06. Fever in a returning traveler from [facility]. Labs reveal leukopenia, mild anemia, and thrombocytopenia. Normal renal function. Slightly elevated AST otherwise normal LFTs. His fevers appear to have abated for the time being, however his thrombocytopenia is worsening (plts 85 on 03/11). He was febrile throughout most of 03/10 and 03/11 but reports his headaches have resolved. On 03/12, with resolved leukopenia/anemia and resolved fevers, however with worsening thrombocytopenia from 85 -> 41. He reports that while in [place], he had multiple mosquito bites, noticed rats at his place of residence, and dipped his feet into water at the beach (he says this was the ocean and he denies any freshwater exposures). He drank bottled water and did not eat any raw/undercooked meat. No new sexual partners on his travels. (last sexually active several months prior). Did not take malaria ppx, did not take travel vaccinations. Ddx is wide for fever in a returning traveler from [place], which include: malaria (blood smears prelim neg x3), dengue, chikungunya (pt without arthralgias/myalgias), tick bite fever (R. africae, spotted fever / other rickettsial infections; pt without eschar or rash), acute Schistosomiasis (pt without obvious freshwater exposures, no eosinophilia), Typhoid (BCx NGTD), meningococcus (would expect pt to be more ill), trypanosomiasis (headaches have resolved; pt without chancre, no lymphadenitis), leptospirosis (pt with possible rodent exposure), hantavirus (pt with possible rodent exposure). Also considered measles, varicella, parvovirus. Without any arthralgias/myalgias or rash to help pinpoint a specific etiology. Patient with ?scleral icterus (but normal bili)perhaps start of conjunctivitis which could be from viral hemorrhagic fevers or leptospirosis (though without pronounced conjunctival suffusion). Malaria blood smears neg x3. If patient has recurrence of high fever spike/rigors, would obtain additional peripheral malaria smear at that time. Currently awaiting testing for dengue, leptospirosis, hantavirus, and Lyme/RMSF/Rickettsial panel (which may be less sensitive but have cross- reactivity with ATBF). If clinical worsening, recurrence of fevers, or hemodynamic instability, would consider starting ceftriaxone (which would cover typhoid) and consider CT C/A/P for further evaluation. Could consider sending testing for Yellow fever. Would also send hepatitis testing if LFTs worsen. Given worsening thrombocytopenia, will send EBV serologies, CMV titers, Chikungunya, and Zika (see below for details). Peripheral flow cytometry pending. A self-limited process such as viral infection is possible and would not typically require treatment beyond supportive care. However iven the possibility of Tick Bite Fever/Spotted fever/rickettsial infection, can continue doxycycline, likely for a 10-day course. This would also cover leptospirosis. He also reported cold sores of his lips/nose that appear to be healing, which are in the same location as his typical outbreaks when stressed/sick. 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 Reasonable to complete a short course of acyclovir. https://wwwnc.cdc.gov/travel/destinations/traveler/none/[facility] https://wwwnc.cdc.gov/travel/yellowbook/2023/posttravel-evaluation/cwphf-no-bvk- returned-traveler ID Problem List: 1.Fever in a returning traveler from [place] 2.Pancytopenia with mild leukopenia/anemia, moderate thrombocytopenia 3.Mildly elevated AST 4.Cold sores, HSV infection Recommendations: - If patient has recurrence of high fever spike/rigors, would obtain additional peripheral malaria smear at that time, and repeat blood cultures - Continue doxycycline 100 mg PO BID - If clinical worsening, recurrence of fevers, or hemodynamic instability, would consider starting ceftriaxone (which would cover typhoid) and consider CT C/A/P for further evaluation. - Reasonable to continue PO acyclovir given recent cold sores - F/u: Rickettsial agents (RMSF panel and R. typhus panel), Lyme (to eval for cross-reactivity), Histo urine Ag, dengue virus PCR, dengue NS1 Ag, leptospirosis PCR, leptospirosis IgM, hantavirus Ab, dengue fever Ab - Send Chikungunya PCR/Ab and Zika PCR/Ab, EBV serologies, monospot, CMV PCR - Recheck LFTs tomorrow - Could consider sending testing for Yellow fever - f/u BCx ID will continue to follow. Cathy Krueger MD, [facility] Infectious Diseases [facility]/ID Connect ID Connect direct line: [phone] Admission and Anticipated Discharge Date Admission Date: March 10, 2023 Subjective Subsequent visit was provided via telemedicine using two-way real-time interactive telecommunication between the patient and the telemedicine provider. For the duration of the visit, the provider was performing the assessment from a different facility than the patient. This includesuse of bluetooth stethoscope forauscultationperformed by the telepresenter that the telemed icine provider can hear if described in the physical exam. Graphic Designer contact information: Please call ID Connect Call Center . (Phone Number For Physician Use Only) After establishing a telemedicine visit, patient was: Patient/authorized rep acknowledged consent and understanding and Gave permission to continue teleh ealth session Time Spent with Patient: Subsequent => 35 min - Patient clarifies that he does not think headaches were a major part of his initial presentation. No rashes, no joint pains. Feels well today and thinks he has returned to baseline - WBC of 37.9 yesterday afternoon, afebrile last night and this morning - WBC of 5.7, Hgb of 15.3, however with worsening thrombocytopenia 85 -> 41 Physical Exam Physical Exam: Exam obtained with aid of in-person telepresenter. General: Well-appearing, no acute distress HEENT: Conjunctivae non-injected, MMM, OP clear. Healed lesions on his lips/nose. Resp: Respirations nonlabored. Abd: Soft, nontender, nondistended. Ext: Warm and well-perfused, no edema. No joint warmth or effusions noted. Skin: No rashes or lesions. Neuro: Alert & interactive. Grossly non-focal. Psych: Pleasant, appropriate. Results & Data Vital Signs (Past 12 Hours) Vital Signs Temp Pulse Resp BP Pulse Ox O2 Del Method 03/12/23 14:27 36.9 C 75 18 111/69 99 Room Air 03/12/23 08:17 37.0 C 75 18 113/79 99 Room Air (2) Fever Fever type: unspecified Qualified Code(s): R50.9 - Fever, unspecified
[2023-03-13 08:19] LABS: Hemoglobin 14.9 g/dl (14.0-18.0); Mean Corpuscular Hemoglobin 29.9 pg (25.0-34.0); Mean Corpuscular Hgb Conc 33.9 g/dL (32.0-36.0); Mean Corpuscular Volume 88.4 fL (80.0-100.0); Mean Platelet Volume 12.2 fL (9.4-12.4); Platelet Count 31 K/uL (130-400); RDW Coefficient of Variation 12.4 % (11.5-14.5); RDW Standard Deviation 39.8 fL (36.4-46.3); Red Blood Count 4.98 M/uL (4.70-6.10); White Blood Count 8.45 K/ul (4.8-10.8)
[2023-03-13 08:21] LABS: Albumin Level 3.8 gm/dl (3.4-5.0); BUN Creatinine Ratio 8.6 (10-20); Bilirubin Direct 0.1 mg/dl (0-0.2); Bilirubin,Total 0.5 mg/dl (0.2-1.0); Creatinine Clr Calc Pharmacy 90.3 ml/min; Est GFR (African American) 110.6 ml/min; Est GFR (Non-African American) 95.5 ml/min; Potassium 4.2 mmol/L (3.5-5.1)
[2023-03-13 09:14] LABS: ALC (manual) 5.58 K/uL (1.2-3.4); ANC (manual) 2.11 K/uL (1.4-6.5); Basophils # (manual) 0.08 K/uL (0-0.2); Basophils % (manual) 1 %; Eosinophils # (manual) 0.25 K/uL (0-0.50); Eosinophils % (manual) 3 %; Lymphocytes # (manual) 1.94 K/uL (1.2-3.4); Lymphocytes % (manual) 23 %; Monocytes # (manual) 0.42 K/uL (0.11-0.59); Monocytes % (manual) 5 %; Neutrophils # (manual) 2.11 K/uL (1.40-6.50); Neutrophils % (manual) 25 %; Plasma Cells # (manual) 1.69 K/uL (0-0); Plasma Cells % (manual) 20 %; Reactive Lymphocytes # (manual) 1.94 K/uL; Reactive Lymphocytes % (manual) 23 %
[2023-03-13] MEDS: DOXYCYCLINE HYCLATE 100 MG CAP PO SCH (09:24)
--- NOTE | 2023-03-13 11:03 | Infectious Disease Progress Nt ---
Date of Service March 13, 2023 Assessment & Plan (1) Travel within last 14 days: (2) Fever: (3) Leukopenia: (4) Thrombocytopenia: (5) Elevated AST (SGOT): (6) Anemia: (7) Recurrent cold sores: Plan Facundo Kahn is a 27-year-old man originally from [place] (moved to ~10 years ago) with no prior PMH, and with recent travel to [facility] (02/01/23 03/03/23) who was sent from [facility] to the ED on 03/10/23 for fevers, chills, and headaches that began on 03/06. Fever in a returning traveler from [facility]. Labs reveal leukopenia, mild anemia, and thrombocytopenia. Normal renal function. Slightly elevated AST otherwise normal LFTs. With continued fevers 03/11 to 03/12. On 03/12, with resolved leukopenia/anemia and resolved fevers, however with worsening thrombocytopenia from 85 -> 41 -> 31 on 03/13/23. The etiology of his fevers is uncertain but includes dengue, other arboviral infection, or ricksettisal infection. Malaria smears neg x3. He reports that while in [place], he had multiple mosquito bites, noticed rats at his place of residence, and dipped his feet into water at the beach (he says this was the ocean and he denies any freshwater exposures). He drank bottled water and did not eat any raw/undercooked meat. No new sexual partners on his travels. (last sexually active several months prior). Did not take malaria ppx, did not take travel vaccinations. Ddx is wide for fever in a returning traveler from [place], which include: malaria (blood smears prelim neg x3), dengue, chikungunya (pt without arthralgias/myalgias), tick bite fever (R. africae, spotted fever / other rickettsial infections; pt without eschar or rash), acute Schistosomiasis (pt without obvious freshwater exposures, no eosinophilia), Typhoid (BCx NGTD), meningococcus (would expect pt to be more ill), trypanosomiasis (headaches have resolved; pt without chancre, no lymphadenitis), leptospirosis (pt with possible rodent exposure), hantavirus (pt with possible rodent exposure). Also considered measles, varicella, parvovirus. Without any arthralgias/myalgias or rash to help pinpoint a specific etiology. Patient with ?scleral icterus (but normal bili)perhaps start of conjunctivitis which could be from viral hemorrhagic fevers or leptospirosis (though without pronounced conjunctival suffusion). Malaria blood smears neg x3. If patient has recurrence of high fever spike/rigors, would obtain additional peripheral malaria smear at that time. Currently awaiting testing for dengue (Ab/NS1 Ag/PCR), leptospirosis, hantavirus, and RMSF/Rickettsial panel (which may be less sensitive but have cross-reactivity with ATBF). Given worsening thrombocytopenia, have also sent EBV serologies, CMV titers, Chikungunya Ab/PCR, and Zika (see below for details). Peripheral flow cytometry pending. If clinical worsening, recurrence of fevers, or hemodynamic instability, would consider starting ceftriaxone (which would cover typhoid) and consider CT C/A/P for further evaluation. Could consider sending testing for Yellow fever. A self-limited process such as viral infection is possible and would not typically require treatment beyond supportive care. However given the possibility of Tick Bite Fever/Spotted fever/rickettsial infection, can continue doxycycline for a 10-day course. This would also cover leptospirosis. The pts platelet declan, in combination with improvement clinically and improvement in other labs, is suggestive of dengue or other arboviral infection. He does not have s/sx of active bleeding, but will be important to closely follow CBC w/ diff and follow his plt count. In dengue, after recovery of plt count the recovery period may be characterized by capillary leak and fluid overload, including pulmonary edema and thus would closely monitor for such symptoms. The patient is discharging today with close outpatient follow-up with [facility] provided return precautions counseling including to return to the hospital if any fevers, chills, shortness of breath, or any new and concerning symptoms. Patient voiced understanding of this. He also reported cold sores of his lips/nose that appear to be healing, which are in the same location as his typical outbreaks when stressed/sick. 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 Reasonable to complete a short course of acyclovir. https://wwwnc.cdc.gov/travel/destinations/traveler/none/[place] https://wwwnc.cdc.gov /travel/yellowbook/2023/posttravel-evaluation/mnujg-mp-vor-returned-traveler ID Problem List: 1.Fever in a returning traveler from [place] 2.Pancytopenia with mild leukopenia/anemia, moderate thrombocytopenia 3.Mildly elevated AST 4.Cold sores, HSV infection Recommendations: - Reasonable to continue doxycycline 100 mg PO BID to complete a 10-day course (03/1103/20/23) - If patient has recurrence of high fever spike/rigors, would obtain additional peripheral malaria smear at that time, and repeat blood cultures - If clinical worsening, recurrence of fevers, or hemodynamic instability, would consider starting ceftriaxone (which would cover typhoid) and consider CT C/A/P for further evaluation. - Reasonable to continue PO acyclovir given recent cold sores - F/u: Rickettsial agents (RMSF panel and R. typhus panel), Lyme (to eval for cross-reactivity), Histo urine Ag, dengue virus PCR, dengue NS1 Ag, leptospirosis PCR, leptospirosis IgM, hantavirus Ab, dengue fever Ab, Chikungunya PCR/Ab and Zika PCR/Ab, EBV serologies, CMV PCR - Recommend repeat CBC w/ diff and C[facility] on 03/15 with [facility] if able. Recommend patient to follow closely with PCP/[facility] clinic, including to follow pending results. - Provided return precautions counseling including to return to the hospital if any fevers, chills, shortness of breath, or any new and concerning symptoms. Patient voiced understanding of this. - Could consider sending testing for Yellow fever - f/u BCx Plan discussed with hospitalist. Patient will likely discharge today with close return precautions. Thank you for letting ID participate in the care of this patient. ID will sign off at this time. If questions, [facility] . Cathy Krueger MD, [facility]/ID Connect ID Connect direct line: [phone] Admission and Anticipated Discharge Date Admission Date: March 12, 2023 Subjective Subsequent visit was provided via telemedicine using two-way real-time interactive telecommunication between the patient and the telemedicine provider. For the duration of the visit, the provider was performing the assessment from a different facility than the patient. This includesuse of bluetooth stethoscope forauscultationperformed by the telepresenter that the telemedicine provider can hear if described in the physical exam. Estate Planning Paralegal contact information: Please call ID Connect Call Center [phone]. (Phone Number For Physician Use Only) After establishing a telemedicine visit, patient was: Patient was verified with two unique identifiers, Patient/authorized rep acknowledged consent and understanding and Gave permission to continue telehealth session Time Spent with Patient: Subsequent => 55 min - Remains afebrile, WBC 8.45, plts 41 -> 31 - AST 52, other LFTs wnl (ALT 26 alk phos 42 tbili 0.5 dbili 0.1) - Patient strongly wishing to discharge today, says he feels well without fevers. 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 Acknowledges that his platelet counts are low, and understands there is a risk of bleeding. We discussed that if does indeed have dengue, that he has a risk of bleeding while his platelets are low, and that in the subsequent days if he makes a recovery, he still may be at risk for fluid overload which could impact his breathing. I counseled him on return precautions such as fevers, chest pain, shortness of breath, significant swelling. He voiced understanding of this. - Per the pts hospitalist, the pt also amenable to follow-up with S for a visit and repeat labs on Thursday if able. Physical Exam Physical Exam: Exam obtained with aid of in-person telepresenter. General: Well-appearing, no acute distress HEENT: Conjunctivae non-injected, MMM, OP clear. Healed lesions on his lips/nose. Resp: Respirations nonlabored. Abd: Soft, nontender, nondistended. Ext: Warm and well-perfused, no edema. No joint warmth or effusions noted. Skin: No rashes or lesions. Neuro: Alert & interactive. Grossly non-focal. Psych: Pleasant, appropriate. Results & Data Vital Signs (Past 12 Hours) Vital Signs Temp Pulse Resp BP Pulse Ox O2 Del Method 03/13/23 08:18 36.9 C 81 18 116/77 96 Room Air Diagnostic Findings Diagnostics: 03/10/23 CXR FINDINGS: Lung volumes are normal. Lungs are clear. There is no pneumothorax or pleural effusion. Cardiac size is normal. Mediastinal contours are normal. There is no evidence for pulmonary edema. IMPRESSION: No acute cardiopulmonary findings. Micro Summary: 03/12 CMV serum PCR: pending 03/12 monoscreen: neg. EBV serologies: pending 03/12 Dengue NS1: pending; 03/12 dengue RNA: pending 02/20 leptospirosis DNA: pending 03/12 hantavirus Ab: pending 03/12 Zika RNA: pending; Zika IgM: pending 03/12 Chikungunya RNA: pending; Chikungunya Ab: pending 03/11 HIV: neg 03/11 Blood smear #3: prelim neg 03/10 Blood smear #2: neg 03/10 Blood smear #1: neg 03/10 BCx x2: NGTD 03/11 Dengue fever Ab: pending 03/10 Respiratory Biofire PCR panel: neg 03/10 UA: neg Antibiotic Summary: doxycycline (03/11 present) acyclovir (03/10 present) (2) Fever Fever type: unspecified Qualified Code(s): R50.9 - Fever, unspecified
[2023-03-13 12:53] LABS: EBV Nuclear Ag Antibody >600.00 U/mL; EBV Virus Capsid Ag IgG Ab <18.00 U/mL
--- NOTE | 2023-03-13 19:17 | Discharge Summary ---
Date of Service March 13, 2023 Admission HPI Per Admitting Provider Fac[place] Was fine when he arrived the first two days. Thursday developed fevers, chills. Did not check his temperature at home. Fevers seem to come and go and are mostly in the evening when sleeping. Had one episode of shaking chills Thursday at 3am, no shaking/rigors since. Denies myalgias and arthralgias. Was a little sore from playing soccer over the weekend, but nothing unusual or worse than he would normally get. Intermittent evening headache that precedes his fever, and then resolves after fever improves or by the time he awakens. No vision change. Endorses mild sensitivity to light this morning which has resolved. Headache causes some mild photo/phonesensitvity. No nuchal rigidity. No rashes. Cold sores started to develop yesterday morning, ulcer on lower lips and nose this morning. No cough. No shortness of breath. No leg swelling. No calf pain. No chest pain. No lightheadedness or dizziness. Feels a little weak and tired when waking up in the morning, but this improves throughout the day No other medical problems No family history of sickle cell disease or thalassemia No tobacco product use. +EtoH use socially. 1 beer in the past month. 3 drinks per week at most. No reacreational drug use. No marijuana use No medication allergies DOes not take any medications normally. Tried tylenol 600mg x1 thi smorning, 1x ibuprofen three times over the weekend. 1x dose of theraflu yesterday No history of anemia, has had bloodwork before Was not on any prophylaxis Malaria endemic. No history of dengue. Had some mosquito bites while he was there. No rashes [facility]. is a [employer]. Principal Diagnosis Fever, thrombocytopenia Discharge Exam PHYSICAL EXAMINATION Last 24h vital signs reviewed, see documentation in flowsheet General: comfortable appearing, no distress HEENT: Normocephalic, atraumatic, pupils round and equal, sclerae anicteric, no conjunctival injection, moist mucus membranes Lungs: Normal respiratory effort. Clear to auscultation bilaterally. No RRW Heart: Regular rate and rhythm, no murmurs. No JVD Abdomen: Soft, nontender, nondistended. Bowel sounds present. no hepatosplenomegaly on deep palpation Extremities: Warm, dry, well-perfused. No extremity edema. Neuro: Alert and oriented x 4, face symmetric, moves 4 extremities well Psych: Normal affect and behavior Discharge Data Allergies Allergy/AdvReac Type Severity Reaction Status Date / Time No Known Allergies Allergy Verified 03/10/23 17:46 Consultations 03/10/23 17:34 ED Decision to Admit Stat 03/10/23 18:23 Consult Infectious Diseases Routine Ordered Studies Chest X-Ray 03/10/23 13:54 XR chest 1V portable CLINICAL HISTORY: Sepsis. COMPARISON STUDY: No previous studies for comparison. FINDINGS: Lung volumes are normal. Lungs are clear. There is no pneumothorax or pleural effusion. Cardiac size is normal. Mediastinal contours are normal. There is no evidence for pulmonary edema. IMPRESSION: No acute cardiopulmonary findings. ACT 112: Negative or not required by law. Electronically signed by: Tony Toney M.D. 03/10/2023 2:30 PM 03/13/23 07:39 03/13/23 07:39 Hospital Course (1) Fever: Presented with fever after recent travel to [place]. Labs notable for progressive thrombocytopenia from 150 --> 85, 41, 31. Leukopenia resolved during the admission improving from 3.15 --> 8.45 and mild lymphopenia, neutropenia also resolved. mild increase in AST to 59, 52. Fever resolved 48h prior to discharge and he was asymptomatic. Infectious disease consulted. Differential diagnosis is broad. Multiple labs ordered this admission and still pending: UA negative, CXR clear, no pulmonary symptoms or hypoxia. Respiratory biofire negative. COVID/flu neg. Lyme IgG and IgM neg. Monospot neg. HIV nonreactive. EBV resulted today after discharge - no interpretation possible per lab report, unusual pattern: capsid Ag IgG neg, capsid Ag IgM neg, EBV nuclear antigen >600 CMV pending urine histoplasma pending serologies for Q fever, rickettsia, typhus pending blood smear for parasite negative x 3 blood cultures negative to date Considered dengue fever with the progressive thrombocytopenia. Fever usually resolves first then if severe disease (hemorrhage, volume overload) develops around this time. Discussed strict return precautions and gave handout. He strongly needed to leave hospital today for personal reasons, felt fine. Discussed with ID physician and discharge is reasonable with close follow up. Discussed risks of hemorrhage if thrombocytopenia were to worsen and to return to ED if any bleeding, dyspnea, edema/swelling, recurrent fevers etc. ok to take acetaminophen for pain or fever. avoid NSAIDs, ASA. EBV could potentially explain his presentation, however, positive nuclear antigen suggests past infection and does not typically appear for months. We did elect to treat with 10-day course of doxycycline for tickborne infection and would also cover leptospirosis. [facility] app[facility] for Thursday. CBC should be checked on Thursday. (2) Travel within last 14 days: He recently was in [place] (3) Thrombocytopenia: Platelet count has dropped to 31,000. No symptoms of bleeding. Coags were normal See above Please check CBC yoni upon follow up Leukopenia has resolved so ideally platelets will be recovering soon. Plan Hopeful discharge to home soon if platelet count stabilizes Total Time Total Time Spent Total Time Spent (In Minutes): I personally spent: 55 minutes today on clinical care activities including: reviewing chart notes and vital signs reviewing labs discussion with senior sales consultant examining and counseling the patient writing orders, discharge instructions documentation Discharge Plan Discharge Items Patient Disposition: Home - Self-Care Reason For Visit: FEVER, RECENT TRAVEL Discharge Diagnosis: Febrile illness, thrombocytopenia Condition on Discharge: Fair Activity: As commented below Activity Comment: take it easy, avoid activities which could cause bleeding / injury Non-emergency contact: Primary Care Provider Call non-emergency contact if: your symptoms worsen and your temperature is above 101 Follow-up/Referrals: [facility] [Primary Care Provider] - Diet: Regular Addtl Attending Provider Instructions: You were evaluated for fever after traveling Many blood tests are still pending We prescribed a course of doxycycline, an antibiotic that will cover tick-borne infections and leptospirosis Your blood platelet count is low. Platelets are the blood cells that help the blood clot and prevent bleeding. Please go to [facility] on Thursday and have your blood counts checked. It is possible you have dengue fever. Sometimes dengue fever worsens after the fever resolves with symptoms of fluid overload and bleeding Return to the ER / seek immediate medical attention if you have any worrisome symptoms, for example: -worsening fever -change in mental status, lethargy, confusion -abnormal bleeding from gums, blood in stool, black tarry stool -severe headache or trouble moving arms or legs -signs of fluid overload like trouble breathing, swelling of extremities (hands/feet or legs) -abdominal pain, nausea, vomiting -see handout about dengue you can take acetaminophen for mild fever or pain. Avoid aspirin, ibuprofen, naproxen Pending Studies at Discharge: Yes Stand-Alone Forms: My [facility], Smoking Cessation Medications and DC Order Prescriptions: New doxycycline hyclate 100 mg Capsule 100 mg PO BID Qty: 20 0RF acetaminophen 325 mg Tablet 650 mg PO Q6H PRN (Reason: fever or pain) Qty: 0 0RF Discharge Orders: Discharge Order (Routine); Ordered 03/13/23 Ordered By: Melodie Doshi/Other Patient Handouts: Understanding Dengue Fever Admission Data Admit Date/Time: 03/12/23 11:00 Attending Provider: Melodie Silva Admit Provider: Rudy Pereyra Primary Care Provider: [facility] Other Providers: Len Garcia; Bethany Thakur; Radha Dhaliwal; Zenon Torres; Dominique Calvillo; Rachna Watts; Denis Hudson; Melodie Shipman; Cathy Krueger Other Interventions: Discharge Summary Assessment (RN) Last Done: 03/13/23 10:58 Coding Level of Care Code 88984 INP/OBS DISCH >30 MIN Diagnoses Fever R50.9 Fever type: unspecified Travel within last 14 days Z78.9 Thrombocytopenia D69.6
[2023-03-16 13:28] LABS: CMV DNA Qnt Real Time PCR Not Detected; CMV DNA Quant PCR Not Detected log IU/mL
[2023-03-17 21:03] LABS: Q Fever IgG, Phase I NEGATIVE; Q Fever Phase I IgM Antibody NEGATIVE; Q Fever Phase II IgG Antibody NEGATIVE; Q Fever Phase II IgM Antibody NEGATIVE; R. typhi IgG Ab NOT DETECTED; R. typhi IgM Ab NOT DETECTED; RMSF IgG Ab NOT DETECTED; RMSF IgM Ab NOT DETECTED
[2023-03-17 21:22] LABS: Reference Quest Test 1 REPORT; Reference Quest Test 2 REPORT
[2023-03-18 09:08] LABS: Reference Quest Test 3 REPORT; Reference Quest Test 5 REPORT
--- NOTE | 2023-03-18 12:42 | Communication Note ---
Date of Service: March 18, 2023 Labs review - positive tests for acute dengue - NS1 Ag and RNA positive, IgG positive, IgM positive. I called Mr Kahn and he is feeling well, platelets 200 yesterday on outpatient labs with [facility]. Discussed precautions to avoid mosquito exposure in tropical regions, since recurrent dengue can be more severe. Notified ID erp implementation consultant. Several sendout labs still pending, other resulted tests are negative including blood cultures leptospirosis and flow cytometry.
[2023-03-19 22:42] LABS: Reference Quest Test 6 REPORT; Reference Quest Test 7 REPORT; Reference Quest Test 8 REPORT; Reference Quest Test 9 REPORT
== END 2023-03-13 12:51 | disposition home or self-care (01) | DRG 866 ==
LOC: ED 13:32 → 3W 13:32 → SUATTDRO 18:27 → 3W 20:26 → SUATTDRO 03-12 11:00